=== PATIENT | male | born 1995 | race American Indian/Alaskan Native ===

== ENCOUNTER 2023-10-26 01:48 | Inpatient (IN) | payer MEDICAID ==
[~2023-10-26] VITALS: Ht 167.6 cm; Wt 57.6 kg
[2023-10-26] MEDS ORDERED: VANCOMYCIN 1 GM /D5W 250 ML PB IV ONE (03:48)
[2023-10-26 03:54] LABS: BASOPHILS % (AUTO) 0.3 % (0.0-2.0); EOSINOPHILS # (AUTO) 0.1 K/uL (0.0-0.7); EOSINOPHILS % (AUTO) 2.8 % (0.0-6.0); HEMATOCRIT 42 % (39-51); HEMOGLOBIN 13.3 g/dL (13.5-17.5); LYMPHOCYTES # (AUTO) 2.1 K/uL (0.8-4.8); LYMPHOCYTES % (AUTO) 41.8 % (20.0-44.0); MEAN CORPUSCULAR HEMOGLOBIN 25 PG (26.0-33.0); MEAN CORPUSCULAR HGB CONC 32 g/dl (31.0-36.0); MEAN CORPUSCULAR VOLUME 79 fL (80-96); MONOCYTES # (AUTO) 0.5 K/uL (0.1-1.30); MONOCYTES % (AUTO) 10.2 % (2.0-12.0); NEUTROPHILS # (AUTO) 2.3 K/uL (1.8-8.9); NEUTROPHILS % (AUTO) 44.9 % (43.0-81.0); PLATELET COUNT (AUTO) 200 K/uL (150-450); RED CELL DISTRIBUTION WIDTH 14.5 % (11.5-15.0); WHITE BLOOD COUNT (AUTO) 5.1 K/uL (4.3-11.0)
[2023-10-26] MEDS: VANCOMYCIN 1 GM in IV D5W 250 ML IV ONE (03:55)
[2023-10-26 04:09] LABS: INR 1.02 (0.91-1.10); PARTIAL THROMBOPLASTIN TIME 27.4 SEC (24.3-34.3); PROTHROMBIN TIME 10.8 SECS (9.2-11.1)
[2023-10-26 04:16] LABS: CALCIUM, SERUM 9.2 mg/dL (8.5-10.1); CREATININE 0.9 mg/dL (0.6-1.3); POTASSIUM 4.4 mmol/L (3.5-5.1)
[2023-10-26 04:24] LABS: LACTIC ACID 0.6 mmol/L (0.4-2.0)
[2023-10-26 04:31] LABS: ALBUMIN 3.9 g/dL (3.4-5.0); BILIRUBIN,DIRECT 0.1 mg/dL (0.0-0.2); BILIRUBIN,TOTAL 0.6 mg/dL (0.2-1.0); TOTAL PROTEIN, SERUM 8.3 g/dL (6.4-8.2)
[2023-10-26] MEDS ORDERED: MAG HYDROX/AL HYDROX/SIMETH 30 ML UDC PO PRN (06:00)
[2023-10-26] MEDS ORDERED: MAGNESIUM HYDROXIDE 30 ML UDC PO PRN (06:00)
[2023-10-26] MEDS ORDERED: Z GUARD REMEDY 4 OZ OINT TP PRN (06:00)
[2023-10-26] MEDS ORDERED: ACETAMINOPHEN 325 MG TABLET PO PRN (06:00)
[2023-10-26] MEDS ORDERED: ONDANSETRON HCL/PF 4 MG/2 ML VIAL IVP PRN (06:00)
[2023-10-26 06:18] LABS: BASOPHILS % (AUTO) 0.2 % (0.0-2.0); EOSINOPHILS # (AUTO) 0.1 K/uL (0.0-0.7); EOSINOPHILS % (AUTO) 2.8 % (0.0-6.0); HEMATOCRIT 41 % (39-51); HEMOGLOBIN 13.3 g/dL (13.5-17.5); LYMPHOCYTES # (AUTO) 2.2 K/uL (0.8-4.8); LYMPHOCYTES % (AUTO) 44.7 % (20.0-44.0); MEAN CORPUSCULAR HEMOGLOBIN 26 PG (26.0-33.0); MEAN CORPUSCULAR HGB CONC 32 g/dl (31.0-36.0); MEAN CORPUSCULAR VOLUME 79 fL (80-96); MONOCYTES # (AUTO) 0.5 K/uL (0.1-1.30); MONOCYTES % (AUTO) 10.2 % (2.0-12.0); NEUTROPHILS # (AUTO) 2.1 K/uL (1.8-8.9); NEUTROPHILS % (AUTO) 42.1 % (43.0-81.0); PLATELET COUNT (AUTO) 195 K/uL (150-450); RED BLOOD CELL COUNT(AUTO) 5.24 MIL/uL (4.5-6.0); RED CELL DISTRIBUTION WIDTH 14.6 % (11.5-15.0); WHITE BLOOD COUNT (AUTO) 4.9 K/uL (4.3-11.0)
[2023-10-26 06:39] LABS: CALCIUM, SERUM 8.7 mg/dL (8.5-10.1); CREATININE 0.9 mg/dL (0.6-1.3); MAGNESIUM 2.2 mg/dL (1.8-2.4); PHOSPHORUS 3.8 mg/dL (2.5-4.9); POTASSIUM 3.9 mmol/L (3.5-5.1)
[2023-10-26 08:15] VITALS: BP 99/61; TEMP 97.7; O2SAT 100
[2023-10-26] MEDS: PANTOPRAZOLE 40 MG TABLET.DR PO SCH (08:43)
[2023-10-26] MEDS: NEOMY SULF/BACITRAC ZN/POLY 15 GM TUBE TP SCH (09:59)
[2023-10-26] MEDS: VANCOMYCIN 1 GM in IV D5W 250 ML IV SCH (12:59)
[2023-10-26 16:32] VITALS: BP 118/62; TEMP 98.4; O2SAT 99
[2023-10-26 20:00] VITALS: BP 97/65; TEMP 97.7; O2SAT 98
[2023-10-27 06:03] LABS: BASOPHILS % (AUTO) 0.2 % (0.0-2.0); EOSINOPHILS # (AUTO) 0.1 K/uL (0.0-0.7); EOSINOPHILS % (AUTO) 3.1 % (0.0-6.0); HEMATOCRIT 45 % (39-51); HEMOGLOBIN 14.7 g/dL (13.5-17.5); LYMPHOCYTES # (AUTO) 1.9 K/uL (0.8-4.8); LYMPHOCYTES % (AUTO) 40.6 % (20.0-44.0); MEAN CORPUSCULAR HEMOGLOBIN 26 PG (26.0-33.0); MEAN CORPUSCULAR HGB CONC 33 g/dl (31.0-36.0); MEAN CORPUSCULAR VOLUME 78 fL (80-96); MONOCYTES # (AUTO) 0.5 K/uL (0.1-1.30); MONOCYTES % (AUTO) 10.8 % (2.0-12.0); NEUTROPHILS # (AUTO) 2.1 K/uL (1.8-8.9); NEUTROPHILS % (AUTO) 45.3 % (43.0-81.0); PLATELET COUNT (AUTO) 198 K/uL (150-450); RED BLOOD CELL COUNT(AUTO) 5.73 MIL/uL (4.5-6.0); RED CELL DISTRIBUTION WIDTH 14.4 % (11.5-15.0); WHITE BLOOD COUNT (AUTO) 4.6 K/uL (4.3-11.0)
[2023-10-27 07:05] LABS: PHOSPHORUS 4.8 mg/dL (2.5-4.9)
[2023-10-27 07:15] LABS: MAGNESIUM 2.2 mg/dL (1.8-2.4)
[2023-10-27 08:00] VITALS: BP 109/79; TEMP 97.7; O2SAT 97
[2023-10-27 20:00] VITALS: BP 110/65; TEMP 98.1; O2SAT 95
[2023-10-28 06:31] LABS: CALCIUM, SERUM 9.2 mg/dL (8.5-10.1); CREATININE 1.1 mg/dL (0.6-1.3); POTASSIUM 3.5 mmol/L (3.5-5.1)
[2023-10-28 07:00] VITALS: BP 101/57; TEMP 97.6; O2SAT 100
[2023-10-28] MEDS: VANCOMYCIN 750 MG in IV D5W 250 ML IV SCH (12:07)
[2023-10-28] MEDS ORDERED: CEPH-570 PO (12:42)
[2023-10-28] MEDS ORDERED: SULF1TAB48 PO (12:42)
== END 2023-10-28 15:21 | disposition home or self-care (01) | DRG 383 ==
LOC: ER 01:51 → MED 07:18
DX: L03.113 Cellulitis of right upper limb (principal); D64.9 Anemia, unspecified; L03.111 Cellulitis of right axilla; S40.861A Insect bite (nonvenomous) of right upper arm, initial encounter; Z59.19 Other inadequate housing; W57.XXXA Bitten or stung by nonvenomous insect and other nonvenomous arthropods, initial encounter; Y92.9 Unspecified place or not applicable
CPT/HCPCS: 36415; 80048-TC; 80076-TC; 80202-TC; 83605-TC; 83735-TC; 84100-TC; 85025-TC; 85730-TC; 87040-TC; 87081-TC; A4223; A6403; G0378; J3370; J3371; J7050; J7060